=== PATIENT | female | born 1985 | race African-American/Black ===

== ENCOUNTER 2023-09-25 10:26 | Inpatient (IN) | payer BC ==
[2023-09-25 11:06] VITALS: BMI 32.4
[2023-09-25] MEDS ORDERED: guaiFENesin 600 MG TABLET.ER (FP) PO PRN (11:49)
[2023-09-25] MEDS ORDERED: NALOXONE HCL (KLOXXADO) 8 MG SPRAY NS PRN (11:49)
[2023-09-25] MEDS ORDERED: ONDANSETRON *ODT* 4 MG TABLET SL PRN (11:49)
[2023-09-25] MEDS ORDERED: NALOXONE HCL 0.4 MG/ML VIAL IM PRN (11:49)
[2023-09-25] MEDS ORDERED: ACETAMINOPHEN 325 MG TABLET (FP) PO PRN (11:49)
[2023-09-25] MEDS ORDERED: POLYETHYLENE GLYCOL (HEALTHYLAX) 3350 17 GM PACKET PO PRN (11:49)
[2023-09-25] MEDS ORDERED: DICYCLOMINE HCL 10 MG CAPSULE PO PRN (11:49)
[2023-09-25] MEDS ORDERED: MAG HYDROX/AL HYDROX/SIMETH 30 ML UNIT-DOSE CUP PO PRN (11:49)
[2023-09-25] MEDS ORDERED: chlordiazePOXIDE HCL 25 MG CAPSULE PO PRN (11:49)
[2023-09-25] MEDS ORDERED: LOPERAMIDE HCL 2 MG CAPSULE PO PRN (11:49)
[2023-09-25] MEDS ORDERED: BENZOCAINE/MENTHOL (CHLORASEPTIC ) LOZENGE MM PRN (11:49)
[2023-09-25] MEDS ORDERED: BISMUTH SUBSALICYLATE 262 MG/15 ML BTL PO PRN (11:49)
[2023-09-25] MEDS ORDERED: IBUPROFEN 600 MG TABLET (FP) PO PRN (11:49)
[2023-09-25] MEDS ORDERED: IBUPROFEN 400 MG TABLET (FP) PO PRN (11:49)
[2023-09-25] MEDS ORDERED: BENZONATATE 200 MG CAPSULE PO PRN (11:49)
[2023-09-25] MEDS ORDERED: MAGNESIUM HYDROX 2400MG/30ML ORAL SUSPENSION 30 ML CUP PO PRN (11:49)
[2023-09-25] MEDS ORDERED: PRENATAL VITAMINS W/ FOLIC ACID TABLET (FP) PO ONE (12:49)
[2023-09-25] MEDS: PRENATAL VITAMINS W/ FOLIC ACID TABLET (FP) PO SCH (12:51)
[2023-09-25] MEDS: INSULIN LISPRO SQ SCH ×2 (14:20→17:11)
[2023-09-25] MEDS: OFLOXACIN 0.3% OTIC SOLUTION 5 ML BOTTLE AD SCH (14:35)
[2023-09-25] MEDS: PATIENT'S OWN MEDICATION (NON-FORMULARY) (Insulin Glargine,Hum.Rec.Anlog [Basaglar Kwikpen SQ SCH (22:40)
[2023-09-25] MEDS: PATIENT'S OWN MEDICATION (NON-FORMULARY) (Amoxicillin/Potassium Clav [Amox-Clav 875-125 Mg PO SCH (22:40)
[2023-09-25] MEDS: chlordiazePOXIDE HCL 25 MG CAPSULE PO SCH (22:40)
[2023-09-25] MEDS: MELATONIN 5 MG TABLETS PO SCH (22:41)
[2023-09-25] MEDS: THIAMINE 100 MG TABLET PO SCH (22:41)
[2023-09-26] MEDS: metFORMIN HCL 500 MG TABLET (FP) PO SCH (07:51)
[2023-09-26] MEDS: GABAPENTIN 300 MG CAPSULE PO SCH (10:14)
[2023-09-26] MEDS: FERROUS SO4 325 MG TABLET (FP) PO SCH (10:14)
[2023-09-26] MEDS: PANTOPRAZOLE 20 MG TABLET PO SCH (10:14)
[2023-09-27] MEDS: chlordiazePOXIDE HCL 25 MG CAPSULE PO SCH (05:48)
[2023-09-28] MEDS ORDERED: chlordiazePOXIDE HCL 10 MG CAPSULE PO PRN
[2023-09-28] MEDS: chlordiazePOXIDE HCL 10 MG CAPSULE PO SCH (05:12)
[2023-09-28] MEDS ORDERED: AMOX TR/POT CLAV 875MG/125MG TABLETS (FP) PO ONE (10:37)
[2023-09-28] MEDS ORDERED: INSULIN (NOVOLOG MIX 70/30) 100 UNITS/ML MDV SQ ONE (11:35)
[2023-09-28] MEDS ORDERED: INSULIN ASPART SLIDING SCALE (NOVOLOG) 1 VIAL SQ ONE (12:02)
[2023-09-28 13:19] LABS: HEMOGLOBIN 11.3 GM/dL (10.7-15.3); MCH 29.1 pg (25.7-33.7); MCHC 31.4 g/dl (32.0-36.0); MEAN CELL VOLUME 92.7 fl (80-96); MEAN PLT VOLUME 8.7 fl (7.5-11.1); PLATELET COUNT 195 10^3/uL (134-434); RBC 3.88 M/mm3 (3.60-5.2); RDW 22.2 % (11.6-15.6); WHITE BLOOD COUNT 2.9 K/mm3 (4.0-10.0)
[2023-09-28] MEDS: AMOX TR/POT CLAV 875MG/125MG TABLETS (FP) PO SCH (17:16)
[2023-09-29] MEDS: chlordiazePOXIDE HCL 10 MG CAPSULE PO SCH (05:30)
[2023-09-29] MEDS ORDERED: INSULIN ASPART SLIDING SCALE (NOVOLOG) 1 VIAL SQ ONE (11:52)
[2023-09-29] MEDS: LACTULOSE 20 GM/30 ML UDC (FOR ORAL USE ONLY) PO SCH (13:04)
[2023-09-29] MEDS: hydrOXYzine PAMOATE 25 MG CAPSULE (FP) PO PRN (17:07)
[2023-09-29] MEDS: METHOCARBAMOL 500 MG TABLET PO PRN (17:07)
[2023-09-29] MEDS: HYDROCORTISONE 2.5% TOPICAL CREAM 30 GM TUBE TP SCH (22:05)
[2023-09-30] MEDS: chlordiazePOXIDE HCL 10 MG CAPSULE PO ONE (05:04)
[2023-09-30 08:55] VITALS: BP 133/90; PULSE 92; RESP 18; TEMP 97.8
[2023-09-30 11:50] LABS: BASO % 0.8 % (0-2.0); EOS % 2.2 % (0-4.5); HEMATOCRIT 33.5 % (32.4-45.2); HEMOGLOBIN 10.7 GM/dL (10.7-15.3); LYMPH % 27.6 % (8-40); MCH 29.5 pg (25.7-33.7); MCHC 31.9 g/dl (32.0-36.0); MEAN CELL VOLUME 92.5 fl (80-96); MEAN PLT VOLUME 8.1 fl (7.5-11.1); MONO % 8.8 % (3.8-10.2); NEUT % 60.6 % (42.8-82.8); PLATELET COUNT 271 10^3/uL (134-434); RBC 3.62 M/mm3 (3.60-5.2); RDW 21.3 % (11.6-15.6)
[2023-09-30 11:52] LABS: POTASSIUM 3.5 mmol/L (3.5-5.1)
[2023-09-30 11:59] LABS: BLOOD UREA NITROGEN 6.9 mg/dL (7-18); CALCIUM 9.4 mg/dL (8.5-10.1)
[2023-09-30 12:02] LABS: CREATININE 0.4 mg/dL (0.55-1.3)
[2023-09-30 12:21] LABS: ANISOCYTOSIS 2+; MACROCYTOSIS 1+
== END 2023-09-30 10:15 | disposition other institution (70) | DRG 774 ==
LOC: YASAS 10:26 → Y3N 12:16
PROVIDERS: ADMIT Allergy & Immunology; ATTEND Surgery
PROC: HZ2ZZZZ Detoxification Services for Substance Abuse Treatment (ICD-10-PCS; principal; 2023-09-25)
DX: F14.20 Cocaine dependence, uncomplicated (principal); E72.20 Disorder of urea cycle metabolism, unspecified; E10.9 Type 1 diabetes mellitus without complications; Z79.4 Long term (current) use of insulin; Z79.84 Long term (current) use of oral hypoglycemic drugs; R94.31 Abnormal electrocardiogram [ECG] [EKG]; Z87.891 Personal history of nicotine dependence
CPT/HCPCS: 36415; 80048; 80305; 80307; 81025; 82140; 82962; 85025; 85027; 86780; 93005; 93010

== ENCOUNTER 2024-02-23 20:41 | Emergency (ER) | payer BC ==
[2024-02-23 21:06] VITALS: BP 125/85; PULSE 107; RESP 20; TEMP 97.3; BMI 31.8
[2024-02-23] MEDS ORDERED: ACETAMINOPHEN 500 MG TABLET (FP) ONE (23:03)
[2024-02-23] MEDS: ACETAMINOPHEN 500 MG TABLET (FP) PO ONE (23:07)
== END 2024-02-23 23:25 | disposition home or self-care (01) ==
LOC: JER 20:41
DX: H57.12 Ocular pain, left eye (principal); Y04.8XXA Assault by other bodily force, initial encounter
CPT/HCPCS: 70450-TC; 70486-TC; 99284-25

== ENCOUNTER 2024-02-24 01:26 | Inpatient (IN) | payer BC ==
[2024-02-24 02:30] VITALS: BMI 4624.7
[2024-02-24] MEDS ORDERED: NALOXONE HCL 0.4 MG/ML VIAL IM PRN (02:52)
[2024-02-24] MEDS ORDERED: BISMUTH SUBSALICYLATE 524 MG/30 ML PO PRN (02:52)
[2024-02-24] MEDS ORDERED: ONDANSETRON *ODT* 4 MG TABLET SL PRN (02:52)
[2024-02-24] MEDS ORDERED: POLYETHYLENE GLYCOL (HEALTHYLAX) 3350 17 GM PACKET PO PRN (02:52)
[2024-02-24] MEDS ORDERED: BENZOCAINE/MENTHOL (CHLORASEPTIC ) LOZENGE MM PRN (02:52)
[2024-02-24] MEDS ORDERED: NALOXONE (NARCAN) HCL 4 MG/0.1 ML SPRAY NS PRN (02:52)
[2024-02-24] MEDS ORDERED: LOPERAMIDE HCL 2 MG CAPSULE PO PRN (02:52)
[2024-02-24] MEDS ORDERED: BENZONATATE 200 MG CAPSULE PO PRN (02:52)
[2024-02-24] MEDS ORDERED: guaiFENesin 600 MG TABLET.ER (FP) PO PRN (02:52)
[2024-02-24] MEDS ORDERED: DICYCLOMINE HCL 10 MG CAPSULE PO PRN (02:52)
[2024-02-24] MEDS ORDERED: NICOTINE POLACRILEX 2 MG LOZENGE BC PRN (02:52)
[2024-02-24] MEDS ORDERED: MAGNESIUM HYDROX 2400MG/30ML ORAL SUSPENSION 30 ML CUP PO PRN (02:52)
[2024-02-24] MEDS ORDERED: MAG HYDROX/AL HYDROX/SIMETH 30 ML UNIT-DOSE CUP PO PRN (02:52)
[2024-02-24] MEDS ORDERED: IBUPROFEN 400 MG TABLET (FP) PO PRN (02:52)
[2024-02-24] MEDS: METHOCARBAMOL 500 MG TABLET PO PRN (04:08)
[2024-02-24] MEDS: IBUPROFEN 600 MG TABLET (FP) PO PRN (04:08)
[2024-02-24] MEDS: INSULIN ASPART SLIDING SCALE (NOVOLOG) 1 VIAL SQ SCH (07:20)
[2024-02-24] MEDS: ACETAMINOPHEN 325 MG TABLET (FP) PO PRN (08:14)
[2024-02-24] MEDS: NICOTINE 14 MG/24 HOURS TOPICAL PATCH TD SCH (10:06)
[2024-02-24] MEDS: PRENATAL VITAMINS W/ FOLIC ACID TABLET (FP) PO SCH (10:08)
[2024-02-24] MEDS: chlordiazePOXIDE HCL 25 MG CAPSULE PO SCH (10:08)
[2024-02-24] MEDS: PANTOPRAZOLE 20 MG TABLET PO SCH (10:08)
[2024-02-24] MEDS: FERROUS SO4 325 MG TABLET (FP) PO SCH (10:08)
[2024-02-24] MEDS: metFORMIN HCL 500 MG TABLET (FP) PO SCH (10:58)
[2024-02-24] MEDS: INSULIN (NOVOLOG) ASPART 100 UNITS/ML 10ML VIAL SQ SCH (11:37)
[2024-02-24] MEDS: OFLOXACIN 0.3% OTIC SOLUTION 5 ML BOTTLE AD SCH (12:31)
[2024-02-24] MEDS: GABAPENTIN 300 MG CAPSULE PO SCH (12:32)
[2024-02-24 14:42] LABS: HEMOGLOBIN 10.8 GM/dL (10.7-15.3); MCH 32.5 pg (25.7-33.7); MCHC 32.6 g/dl (32.0-36.0); MEAN CELL VOLUME 99.7 fl (80-96); MEAN PLT VOLUME 7.6 fl (7.5-11.1); PLATELET COUNT 284 10^3/uL (134-434); RBC 3.31 M/mm3 (3.60-5.2); RDW 19.3 % (11.6-15.6); WHITE BLOOD COUNT 3.4 K/mm3 (4.0-10.0)
[2024-02-24 14:43] LABS: POTASSIUM 3.6 mmol/L (3.5-5.1)
[2024-02-24 14:59] LABS: ALBUMIN 3.1 g/dl (3.4-5.0); BLOOD UREA NITROGEN 13.1 mg/dL (7-18); CALCIUM 8.7 mg/dL (8.5-10.1)
[2024-02-24 15:04] LABS: TOT PROT 6.6 g/dl (6.4-8.2)
[2024-02-24 15:05] LABS: CREATININE 0.6 mg/dL (0.55-1.3)
[2024-02-24 15:07] LABS: BILIRUBIN,TOTAL 0.4 mg/dL (0.2-1)
[2024-02-24] MEDS: TETRAHYDROZOLINE HCL EYE DROPS OU PRN (16:00)
[2024-02-24] MEDS: THIAMINE 100 MG TABLET PO SCH (22:06)
[2024-02-24] MEDS: INSULIN (LEVEMIR) 100 UNITS/ML UNITS SQ SCH (22:06)
[2024-02-24] MEDS: MELATONIN 5 MG TABLETS PO SCH (22:06)
[2024-02-25] MEDS ORDERED: INSULIN ASPART SLIDING SCALE (NOVOLOG) 1 VIAL SQ ONE (07:36)
[2024-02-25] MEDS: SERTRALINE HCL 50 MG TABLET (FP) PO SCH (09:44)
[2024-02-25] MEDS: NALTREXONE HCL 50 MG TABLET PO SCH (09:44)
[2024-02-25 15:51] LABS: HIV INTERPRETATION NEGATIVE (NEGATIVE)
[2024-02-25] MEDS: chlordiazePOXIDE HCL 25 MG CAPSULE PO PRN (22:34)
[2024-02-26] MEDS: hydrOXYzine PAMOATE 25 MG CAPSULE (FP) PO PRN (02:46)
[2024-02-26] MEDS: chlordiazePOXIDE HCL 25 MG CAPSULE PO SCH (05:52)
[2024-02-26 06:39] LABS: PH,URINE 6.5 (5.0-8.0); URINE APPEARANCE CLEAR; URINE BILIRUBIN NEGATIVE (NEGATIVE); URINE COLOR YELLOW; URINE GLUCOSE (UA) NEGATIVE (NEGATIVE); URINE KETONE NEGATIVE (NEGATIVE); URINE LEUK ESTERASE NEGATIVE (NEGATIVE); URINE NITRITE NEGATIVE (NEGATIVE); URINE PROTEIN NEGATIVE (NEGATIVE); URINE UROBILINOGEN 0.2 mg/dL (0.2-1.0)
[2024-02-26] MEDS: SUVOREXANT 5 MG TABLET PO PRN (22:12)
[2024-02-26] MEDS: CARBAMIDE PEROXIDE 6.5% OTIC 15 ML BOTTLE AD SCH (22:30)
[2024-02-27] MEDS ORDERED: chlordiazePOXIDE HCL 10 MG CAPSULE PO PRN
[2024-02-27] MEDS: chlordiazePOXIDE HCL 10 MG CAPSULE PO SCH (05:32)
[2024-02-27 12:55] VITALS: BP 120/75; PULSE 91; RESP 18; TEMP 96.6
[2024-02-28] MEDS ORDERED: chlordiazePOXIDE HCL 10 MG CAPSULE PO SCH (05:00)
[2024-02-29] MEDS ORDERED: chlordiazePOXIDE HCL 10 MG CAPSULE PO ONE (05:00)
== END 2024-02-27 14:53 | disposition home or self-care (01) | DRG 775 ==
LOC: YASAS 01:26 → Y3N 03:09
PROVIDERS: ADMIT Allergy & Immunology; ATTEND Surgery
PROC: HZ2ZZZZ Detoxification Services for Substance Abuse Treatment (ICD-10-PCS; principal; 2024-02-24)
DX: F10.230 Alcohol dependence with withdrawal, uncomplicated (principal); F17.210 Nicotine dependence, cigarettes, uncomplicated; F19.24 Other psychoactive substance dependence with psychoactive substance-induced mood disorder; F32.A Depression, unspecified; E78.5 Hyperlipidemia, unspecified; E11.9 Type 2 diabetes mellitus without complications; Z79.4 Long term (current) use of insulin; Z79.84 Long term (current) use of oral hypoglycemic drugs; K21.9 Gastro-esophageal reflux disease without esophagitis; S05.8X2D Other injuries of left eye and orbit, subsequent encounter; Y04.2XXD Assault by strike against or bumped into by another person, subsequent encounter
CPT/HCPCS: 36415; 80053; 80305; 80307; 81003; 81025; 82962; 85027; 86780; 86803; 87389; 93005; 93010

== ENCOUNTER 2024-11-17 09:24 | Inpatient (IN) | payer BC ==
[2024-11-17 09:45] VITALS: BMI 35.2
[2024-11-17] MEDS ORDERED: chlordiazePOXIDE HCL 25 MG CAPSULE PO PRN (09:59)
[2024-11-17] MEDS ORDERED: BENZONATATE 200 MG CAPSULE PO PRN (09:59)
[2024-11-17] MEDS ORDERED: MAG HYDROX/AL HYDROX/SIMETH 30 ML UNIT-DOSE CUP PO PRN (09:59)
[2024-11-17] MEDS ORDERED: ONDANSETRON *ODT* 4 MG TABLET SL PRN (09:59)
[2024-11-17] MEDS ORDERED: BISMUTH SUBSALICYLATE 524 MG/30 ML PO PRN (09:59)
[2024-11-17] MEDS ORDERED: hydrOXYzine PAMOATE 25 MG CAPSULE (FP) PO PRN (09:59)
[2024-11-17] MEDS ORDERED: IBUPROFEN 600 MG TABLET (FP) PO PRN (09:59)
[2024-11-17] MEDS ORDERED: NALOXONE (NARCAN) HCL 4 MG/0.1 ML SPRAY NS PRN (09:59)
[2024-11-17] MEDS ORDERED: BENZOCAINE/MENTHOL (CHLORASEPTIC ) LOZENGE MM PRN (09:59)
[2024-11-17] MEDS ORDERED: LOPERAMIDE HCL 2 MG CAPSULE PO PRN (09:59)
[2024-11-17] MEDS ORDERED: DICYCLOMINE HCL 10 MG CAPSULE PO PRN (09:59)
[2024-11-17] MEDS ORDERED: IBUPROFEN 400 MG TABLET (FP) PO PRN (09:59)
[2024-11-17] MEDS ORDERED: guaiFENesin 600 MG TABLET.ER (FP) PO PRN (09:59)
[2024-11-17] MEDS ORDERED: ACETAMINOPHEN 325 MG TABLET (FP) PO PRN (09:59)
[2024-11-17] MEDS ORDERED: NICOTINE POLACRILEX 4 MG GUM BUC PRN (09:59)
[2024-11-17] MEDS ORDERED: POLYETHYLENE GLYCOL (HEALTHYLAX) 3350 17 GM PACKET PO PRN (09:59)
[2024-11-17] MEDS ORDERED: INSULIN (NOVOLOG) ASPART 100 UNITS/ML 10ML VIAL ONE ×2 (10:49→17:12)
[2024-11-17] MEDS ORDERED: PRENATAL VITAMINS W/ FOLIC ACID TABLET (FP) PO ONE (10:49)
[2024-11-17] MEDS: INSULIN ASPART SLIDING SCALE (NOVOLOG) 1 VIAL SQ SCH (10:50)
[2024-11-17] MEDS: PRENATAL VITAMINS W/ FOLIC ACID TABLET (FP) PO SCH (10:50)
[2024-11-17] MEDS: FERROUS SO4 325 MG TABLET (FP) PO SCH (11:45)
[2024-11-17] MEDS: PANTOPRAZOLE 20 MG TABLET PO SCH (11:45)
[2024-11-17] MEDS: metFORMIN HCL 500 MG TABLET (FP) PO SCH (11:57)
[2024-11-17] MEDS: INSULIN (NOVOLOG) ASPART 100 UNITS/ML 10ML VIAL SQ SCH (11:57)
[2024-11-17] MEDS: chlordiazePOXIDE HCL 25 MG CAPSULE PO SCH (17:41)
[2024-11-17] MEDS: THIAMINE 100 MG TABLET PO SCH (22:23)
[2024-11-17] MEDS: TOPIRAMATE 25 MG TABLET PO SCH (22:23)
[2024-11-17] MEDS: MELATONIN 5 MG TABLETS PO SCH (22:23)
[2024-11-17] MEDS: INSULIN GLARGINE (LANTUS) 100 UNITS/ML UNITS SQ SCH (23:29)
[2024-11-18] MEDS: NALTREXONE HCL 50 MG TABLET PO SCH (09:33)
[2024-11-18 10:54] LABS: HEMATOCRIT 37.5 % (34.1-44.9); HEMOGLOBIN 12.6 g/dL (11.2-15.7); MCHC 33.6 g/dl (32.2-35.5); MEAN CELL VOLUME 98.2 fl (79.4-94.8); MEAN PLT VOLUME 9.9 fl (9.4-12.3); PLATELET COUNT 229 x10^3/uL (182-369); RDW 14.6 % (12.1-16.8)
[2024-11-18 11:01] LABS: CHLORIDE 96 mmol/L (98-107); SODIUM 139 mmol/L (136-145)
[2024-11-18 11:03] LABS: ALBUMIN 3.2 g/dl (3.4-5.0); ANION GAP 10 mmol/L (4-13); BLOOD UREA NITROGEN 5.5 mg/dL (7-18); CALCIUM 9.2 mg/dL (8.5-10.1); CO2 32 mmol/L (21-32)
[2024-11-18 11:04] LABS: GLUCOSE,RANDOM 138 mg/dL (74-106)
[2024-11-18 11:06] LABS: SGOT/AST 34 U/L (15-37); SGPT/ALT 23 U/L (13-61)
[2024-11-18 11:07] LABS: CREATININE 0.5 mg/dL (0.55-1.3)
[2024-11-18 11:08] LABS: BILIRUBIN,TOTAL 0.4 mg/dL (0.2-1); TOT PROT 6.9 g/dl (6.4-8.2)
[2024-11-18 11:09] LABS: ALK PHOS 60 U/L (45-117)
[2024-11-18] MEDS: SERTRALINE HCL 50 MG TABLET (FP) PO SCH (11:10)
[2024-11-18] MEDS: POTASSIUM CHLORIDE TABS 20 MEQ TABLET.ER (FP) PO SCH (14:40)
[2024-11-18] MEDS ORDERED: POTASSIUM CHLORIDE TABS 10 MEQ TABLET.ER (FP) PO SCH (14:45)
[2024-11-18] MEDS: traZODone HCL 100 MG TABLET (FP) PO SCH (22:47)
[2024-11-18] MEDS: POTASSIUM CHLORIDE ORAL LIQUID 20 MEQ/15 ML PO SCH (22:47)
[2024-11-19] MEDS: chlordiazePOXIDE HCL 25 MG CAPSULE PO SCH (05:54)
[2024-11-20] MEDS ORDERED: chlordiazePOXIDE HCL 10 MG CAPSULE PO PRN
[2024-11-20] MEDS: chlordiazePOXIDE HCL 10 MG CAPSULE PO SCH (05:47)
[2024-11-20 09:39] LABS: POTASSIUM 4.2 mmol/L (3.5-5.1)
[2024-11-20 09:40] LABS: CALCIUM 9.4 mg/dL (8.5-10.1)
[2024-11-20 09:41] LABS: BLOOD UREA NITROGEN 5.6 mg/dL (7-18)
[2024-11-20 09:44] LABS: CREATININE 0.6 mg/dL (0.55-1.3)
[2024-11-20] MEDS: METHOCARBAMOL 500 MG TABLET PO PRN (22:15)
[2024-11-21] MEDS: chlordiazePOXIDE HCL 10 MG CAPSULE PO SCH (05:50)
[2024-11-21] MEDS ORDERED: INSULIN (NOVOLOG) ASPART 100 UNITS/ML 10ML VIAL ONE (06:16)
[2024-11-21] MEDS: MAGNESIUM HYDROX 2400MG/30ML ORAL SUSPENSION 30 ML CUP PO PRN (22:15)
[2024-11-22] MEDS: chlordiazePOXIDE HCL 10 MG CAPSULE PO ONE (05:48)
[2024-11-22 09:30] VITALS: BP 116/86; PULSE 90; RESP 18; TEMP 98.2
== END 2024-11-22 09:50 | disposition home or self-care (01) | DRG 775 ==
LOC: YASAS 09:24 → Y6N 10:28
PROVIDERS: ADMIT Allergy & Immunology; ATTEND Allergy & Immunology
PROC: HZ2ZZZZ Detoxification Services for Substance Abuse Treatment (ICD-10-PCS; principal; 2024-11-17)
DX: F10.230 Alcohol dependence with withdrawal, uncomplicated (principal); F32.A Depression, unspecified; F41.9 Anxiety disorder, unspecified; D64.9 Anemia, unspecified; E87.6 Hypokalemia; G47.00 Insomnia, unspecified; K21.9 Gastro-esophageal reflux disease without esophagitis; E11.59 Type 2 diabetes mellitus with other circulatory complications; Z79.4 Long term (current) use of insulin; Z79.84 Long term (current) use of oral hypoglycemic drugs; Z62.810 Personal history of physical and sexual abuse in childhood; Z91.410 Personal history of adult physical and sexual abuse; Z87.891 Personal history of nicotine dependence
CPT/HCPCS: 36415; 80048; 80053; 80307; 82962; 85027; 86780; 93005; 93010